=== PATIENT | female | born 1990 | race Hispanic/Latino ===

== ENCOUNTER → 2023-01-20 | Emergency (ER) | payer MEDICAID, OTHER ==
[~2023-01-20] VITALS: Ht 167.6 cm; Wt 90.7 kg
[~2023-01-20] MED LIST: 0.9%NACL 1000ML 1,000 ML IV ONE; AMLO-258 PO; CEFTRIAXONE 1G VIAL IVPB ONE; CEPH250S PO; DIATR MEGLU/DIATRIZOATE SODIUM 30 ML BOTTLE ONE; LISI40TA9 PO; METO100T14 PO; OMEP40CA21 PO
[2023-01-20 15:37] LABS: BASOPHILS # (AUTO) 0.06 K/uL (0.00-0.20); BASOPHILS % (AUTO) 0.5 % (0.0-5.0); EOSINOPHILS # (AUTO) 0.06 K/uL (0.00-0.70); EOSINOPHILS % (AUTO) 0.5 % (0.0-8.0); IMMATURE GRANULOCYTE ABSOLUTE 0.13 K/uL (0-1); LYMPHOCYTES # (AUTO) 2.4 K/uL (1.0-4.8); LYMPHOCYTES % (AUTO) 19.6 % (21.0-51.0); MEAN CORPUSCULAR HEMOGLOBIN 27.1 pg (27.0-33.0); MEAN CORPUSCULAR HGB CONC 33.4 g/dL (32.0-36.0); MONOCYTES # (AUTO) 0.8 K/uL (0.1-1.0); MONOCYTES % (AUTO) 6.5 % (3.0-13.0); NEUTROPHILS # (AUTO) 8.9 K/uL (1.8-7.7); NEUTROPHILS % (AUTO) 71.8 % (40.0-77.0); PLATELET COUNT (AUTO) 537 K/uL (130-400); RED BLOOD CELL COUNT(AUTO) 3.95 MIL/uL (4.00-5.50); RED CELL DISTRIBUTION WIDTH 14.6 % (11.0-15.5); WHITE BLOOD COUNT (AUTO) 12.4 K/uL (4.8-10.8)
[2023-01-20 15:44] LABS: CREATININE 0.6 mg/dL (0.5-1.5); POTASSIUM 3.9 mmol/L (3.5-5.1)
[2023-01-20 15:49] LABS: ALBUMIN 3.3 g/dL (3.5-5.0); BILIRUBIN,TOTAL 0.4 mg/dL (0.2-1.0); TOTAL PROTEIN, SERUM 8.4 g/dL (6.0-8.3)
[2023-01-20 17:01] LABS: APPEARANCE,URINE CLOUDY (CLEAR); BILIRUBIN,URINE NEGATIVE (NEGATIVE); COLOR,URINE YELLOW (YELLOW); GLUCOSE, URINE (UA) NEGATIVE (NEGATIVE); KETONES,URINE NEGATIVE (NEGATIVE); LEUKOCYTE ESTERASE ,URINE 250 Leu/uL (NEGATIVE); NITRATE,URINE NEGATIVE (NEGATIVE); OCCULT BLOOD,URINE NEGATIVE (NEGATIVE); PROTEIN,URINE 20 mg/dL (NEGATIVE); UROBILINOGEN,URINE >=8.0 mg/dL (0.2-1.0)
[2023-01-20 17:05] LABS: ADD UA MICROSCOPIC YES
[2023-01-20 17:07] LABS: BACTERIA,URINE RARE /HPF (None Seen); MUCUS,URINE RARE LPF (None Seen); SQUAMOUS EPITHELIAL CELL,UR MOD /HPF (0-2); WBC,URINE 26-50 /HPF (0-1)
[2023-01-20 23:13] VITALS: BP 129/86; PULSE 112; RESP 18; O2SAT 98
== END ==
LOC: EDH 12:16
DX: K94.23 Gastrostomy malfunction (principal); R82.90 Unspecified abnormal findings in urine; R00.0 Tachycardia, unspecified; R06.82 Tachypnea, not elsewhere classified; E11.9 Type 2 diabetes mellitus without complications; N39.0 Urinary tract infection, site not specified; Z79.899 Other long term (current) drug therapy; Z87.440 Personal history of urinary (tract) infections; Z98.890 Other specified postprocedural states
CPT/HCPCS: 99285; 96365; 71045; 96361; 83615; 80053; 85025; 87088; 82948; 81001; 36415; 74018; Q9963; J7030; J0696

== ENCOUNTER 2023-03-07 19:13 | Emergency (ER) | payer MEDICAID, OTHER ==
[~2023-03-07 19:13] MED LIST changes: -0.9%NACL 1000ML 1,000 ML IV ONE; -CEFTRIAXONE 1G VIAL IVPB ONE; -DIATR MEGLU/DIATRIZOATE SODIUM 30 ML BOTTLE ONE
[2023-03-07 19:16] VITALS: BP 118/86; PULSE 110; RESP 16
[2023-03-07] MEDS ORDERED: DIATR MEGLU/DIATRIZOATE SODIUM 30 ML BOTTLE ONE (20:05)
== END 2023-03-07 21:29 | disposition home or self-care (01) ==
LOC: EDH 19:13
DX: K94.23 Gastrostomy malfunction (principal); E11.9 Type 2 diabetes mellitus without complications; Z79.899 Other long term (current) drug therapy; Z98.2 Presence of cerebrospinal fluid drainage device; Y73.8 Miscellaneous gastroenterology and urology devices associated with adverse incidents, not elsewhere classified; Y92.89 Other specified places as the place of occurrence of the external cause
CPT/HCPCS: 99283; 74018; Q9963